=== PATIENT | male | born 1965 | race African-American/Black ===

== ENCOUNTER 2020-01-07 02:13 | Outpatient (CLI) | payer MEDICARE, SELFPAY ==
[2020-01-07 18:20] LABS: SARS-CoV-2 RNA PCR Negative
== END 2020-01-07 02:14 | disposition home or self-care (01) ==
LOC: ANHCOVIDDT 02:14
PROVIDERS: PCP Family Medicine Sports Medicine; Visit Provider Internal Medicine Gastroenterology
DX: Z01.812 Encounter for preprocedural laboratory examination (principal); Z11.59 Encounter for screening for other viral diseases
CPT/HCPCS: 87635; C9803; U0003

== ENCOUNTER 2020-01-09 01:38 | Day surgery (SDC) | payer MEDICARE, SELFPAY ==
[2020-01-03 12:49] VITALS: BMI 27.1
[2020-01-09 12:18] VITALS: BP 174/91; PULSE 79; RESP 18; TEMP 36.2; O2SAT 100; BMI 26.9
[2020-01-09] MEDS: SODIUM CHLORIDE 0.9% IV 500 ML 10 ML IV CONT (12:35)
--- NOTE | 2020-01-09 12:52 | PM.HPGS ---
History of Present Illness History of Present Illness Consent: Risks, benefits, and alternatives have been discussed and questions answered. Patient agrees to proceed with procedure. Chief complaint: neoplasm screening Narrative: Agueda Houser Jr. is a 54 year old male here for screening colon cancer, last one about 6 years ago. Review of Systems Constitutional: Constitutional: Denies headache(s) and Denies weakness Eyes: Eyes: Denies blurry vision ENT: Reports Normal hearing present, Denies headache(s) and Denies neck pain Cardiovascular: Cardiovascular: Denies chest pain and Denies dyspnea Respiratory: Respiratory: Denies dyspnea Gastrointestinal: Gastrointestinal: Reports no additional gastrointestinal complaints Genitourinary: Genitourinary: Denies dysuria Musculoskeletal: Musculoskeletal: Denies neck pain Integumentary/Breasts: Skin/Breast: Denies dry skin Neurologic: Reports Normal hearing present, Denies headache(s) and Denies weakness Psychiatric: Psychiatric: Denies anxiety Endocrine: Endocrine: Denies change in body appearance Hematologic/Lymphatic: Hematologic/Lymphatic: Denies easy bleeding Allergic/Immunologic: Allergic/Immunologic: Denies urticaria PMFSH Past Medical History Medical History (Updated 01/09/20 @ 12:53 by Vivek Contreras MD) Colon cancer screening End stage renal disease on peritoneal dialysis HIV (human immunodeficiency virus infection) Hyperlipidemia Hypertension Meds Home Medications and Allergies Home Medications Medication Instructions Recorded Confirmed Type abacavir 300 mg PO ONCE 01/03/20 01/03/20 History atorvastatin 10 mg PO HS 01/03/20 01/03/20 History calcitriol 0.5 mcg PO 3XW 01/03/20 01/03/20 History dolutegravir [Tivicay] 50 mg PO DAILY 01/03/20 01/03/20 History furosemide 80 mg PO DAILY 01/03/20 01/03/20 History lisinopril 5 mg PO DAILY 01/03/20 01/03/20 History Allergies Allergy/AdvReac Type Severity Reaction Status Date / Time No Known Allergies Allergy Verified 01/09/20 12:16 Vital Signs Vital Signs - 24 hr 01/09/20 12:18 Temperature 97.1 F L Pulse Rate 79 Respiratory Rate 18 Blood Pressure 174/91 H Pulse Oximetry 100 Exam Const: General: comfortable and no acute distress HENMT: General nose exam: Normal nares present Eyes: General: appearance normal, both eyes and all related structures Neck: Neck: no JVD Resp: Auscultation: clear to auscultation bilaterally Cardio: Rate: regular rate Rhythm: regular rhythm GI: Inspection: non-distended GI Palp: Yes Soft to palpation Skin: General skin exam: normal color Neuro: General: gait normal Speech: normal speech Extrem: General: normal to inspection Psych: Mental Status: mental status grossly normal Assessment and Plan Assessment and plan (1) Colon cancer screening: Code(s): Z12.11 - Encounter for screening for malignant neoplasm of colon Status: Acute Assessment and Plan: will proceed with colonoscopy (2) HIV (human immunodeficiency virus infection): Code(s): B20 - Human immunodeficiency virus [HIV] disease Status: Acute
[2020-01-09 13:19] VITALS: BP 122/71; PULSE 79; RESP 14; O2SAT 99
[2020-01-09 13:29] VITALS: BP 120/74; PULSE 64; RESP 16; O2SAT 100
[2020-01-09 13:39] VITALS: BP 134/82; PULSE 64; RESP 18; O2SAT 100
== END 2020-01-09 14:00 | disposition home or self-care (01) ==
PROVIDERS: PCP Family Medicine Sports Medicine; Visit Provider Internal Medicine Gastroenterology
PROC: 0DJD8ZZ Inspection of Lower Intestinal Tract, Via Natural or Artificial Opening Endoscopic (ICD-10-PCS; CPT 45378; principal; 2020-01-09 12:15)
DX: Z12.11 Encounter for screening for malignant neoplasm of colon (principal); D12.2 Benign neoplasm of ascending colon; K64.8 Other hemorrhoids; I12.0 Hypertensive chronic kidney disease with stage 5 chronic kidney disease or end stage renal disease; N18.6 End stage renal disease; Z99.2 Dependence on renal dialysis; E78.5 Hyperlipidemia, unspecified; B20 Human immunodeficiency virus [HIV] disease
CPT/HCPCS: 45385; 88305; J2704; J7040

== ENCOUNTER → 2020-01-16 14:51 | Outpatient (CLI) | payer MEDICARE, SELFPAY ==
--- NOTE | ~2020-01-16 | XR_ITS ---
EXAMINATION: XR chest 2V DATE: 01/16/2020 15:05 INDICATION: Positive tuberculosis test. TECHNIQUE: Frontal and lateral views of the chest were obtained on 3 radiographs. COMPARISON: Chest 2 views 12/18/2013 FINDINGS: There is mild scarring at left lung apex. Calcified right lung nodules are consistent with old granulomatous disease. No pleural effusion or pneumothorax. The heart size is normal. There are c hanges of posterior fusion procedure in cervicothoracic spine. IMPRESSION: 1. Mild scarring at left lung apex, stable from 12/18/2013. Reviewed, dictated and finalized at location A.
== END ==
PROVIDERS: Visit Provider Internal Medicine Nephrology
DX: R76.11 Nonspecific reaction to tuberculin skin test without active tuberculosis (principal); R91.8 Other nonspecific abnormal finding of lung field
CPT/HCPCS: 71046

== ENCOUNTER 2021-08-15 22:09 | Emergency (ER) | payer MEDICARE, SELFPAY ==
[2021-08-15 22:19] VITALS: BP 162/98; PULSE 96; RESP 16; TEMP 36.4; O2SAT 99
--- NOTE | 2021-08-15 23:57 | ED.GENADULT ---
HPI - General Adult General Chief complaint: Urogenital-Male Stated complaint: hard to urinate Time Seen by Provider: 08/15/21 22:49 History of Present Illness HPI narrative: 55-year-old male presented to the emergency department for evaluation of acute urinary retention. Patient states over the last 2 days he has had increased difficulty urinating. Patient states that he has increased urgency. Patient states he is also having to strain in order to pass any urine. Patient does report a history of urinary tract infection but denies any prior history of urinary retention. Patient does describe a decreased caliber of his urinary stream but has not had any issues with retention until today. Patient's previous urinary tract infection was secondary to having a Couch catheter during a surgical procedure. Related Data Home Medications Medication Instructions Recorded Confirmed abacavir 300 mg PO ONCE 01/03/20 01/03/20 atorvastatin 10 mg PO HS 01/03/20 01/03/20 calcitriol 0.5 mcg PO 3XW 01/03/20 01/03/20 dolutegravir [Tivicay] 50 mg PO DAILY 01/03/20 01/03/20 furosemide 80 mg PO DAILY 01/03/20 01/03/20 lisinopril 5 mg PO DAILY 01/03/20 01/03/20 Allergies Allergy/AdvReac Type Severity Reaction Status Date / Time No Known Allergies Allergy Verified 01/09/20 12:16 Review of Systems Review of Systems: CONSTITUTIONAL: Denies fever, chills, or sweats. EYES: Denies visual changes, redness, or discharge. ENT: Denies rhinorrhea, congestion, sore throat, or otalgia. CARDIOVASCULAR: Denies chest pain, palpitations, or edema. RESPIRATORY: Denies cough or dyspnea. GASTROINTESTINAL: Denies abdominal pain, nausea, vomiting, or diarrhea. GENITOURINARY: Urinary frequency, lower abdominal pressure, urinary retention SKIN: Denies rash or itching. MUSCULOSKELETAL: Denies back pain, joint pain, or myalgia. NEUROLOGIC: Denies headache, numbness, or weakness. All systems reviewed & are unremarkable except as noted in HPI and below PMFSH Past Medical History Medical History (Updated 08/16/21 @ 01:33 by Constantine Velásquez MD) Colon cancer screening End stage renal disease on peritoneal dialysis HIV (human immunodeficiency virus infection) Hyperlipidemia Hypertension Exam Narrative: APPEARANCE: Well appearing, no pain, no distress, well-nourished. HEAD: normocephalic, atraumatic. EYES: PERRLA/EOMI, conjunctivae clear. NOSE: Normal no drainage RESPIRATORY: Airway patent, respirations nonlabored. Clear to auscultation bilaterally, no rales, rhonchi, wheezing. CARDIOVASCULAR: Regular rate and rhythm without murmurs rubs or gallops. ABDOMINAL: Mild suprapubic tenderness to palpation. MUSCULOSKELETAL: Moves all extremities. Strength/ROM intact, No edema, No calf tenderness. NEURO: Alert. Cranial nerves II through XII intact. Good gait. Good coordination SKIN: Warm, dry. Normal Color Course Course Emergency Course: Post void residual bladder scan patient still have greater than 400 mL of retained urine. Patient did agree to have a Couch catheter placed. Patient had greater than 500mL urine output and did feel significantly improved. Patient did have some anxiety regarding the Couch catheter but was reassured. Patient was treated with both Pyridium and Flomax in the emergency department. Patient is currently on antibiotics that were started as an outpatient. No significant evidence of urinary tract infection, patient was told to still continue the antibiotics. Patient was provided a prescription for Pyridium due to his bladder spasm and was also provided Flomax. Patient was also provided information for urology follow-up. All questions and concerns were addressed. Patient was improved at time of discharge from the emergency department. Vital Signs Vital signs: Vital Signs Temperature 97.6 F 08/15/21 22:19 Pulse Rate 96 08/15/21 22:19 Respiratory Rate 16 08/15/21 22:19 Blood Pressure 162/98 H 08/15/21 22:19 Pulse Oximetry 99 03/
[2021-08-16 00:26] LABS: Add Urine Microscopic? YES; Appearance Urine Clear (Clear); Bilirubin Urine Negative (Negative); Blood Urine Negative (Negative); Color Urine Yellow (Yellow); Glucose Urine UA 1+ mg/dL (Negative); Ketones Urine Negative (Negative); Leukocyte Esterase Ur Negative LEU/UL (Negative); Nitrate Urine Negative (Negative); Protein Urine 2+ mg/dL (Negative); RBC Urine 0-2 /hpf (0-2); Squamous Epithelial Cell Urine Rare /hpf (Few); Urobilinogen Urine Negative mg/dL (<2.0); WBC Urine 0-3 /hpf
[2021-08-16] MEDS: LIDOCAINE HCL 2% GEL UROJET 10 ML PKG (01:00)
[2021-08-16] MEDS: TAMSULOSIN HCL 0.4 MG CAPSULE PO (01:58)
[2021-08-16] MEDS: PHENAZOPYRIDINE HCL 100 MG TABLET 200 MG PO (01:58)
[2021-08-16 02:31] VITALS: RESP 20
== END 2021-08-16 02:34 | disposition home or self-care (01) ==
PROVIDERS: Emergency Provider Emergency Medicine; PCP Family Medicine Sports Medicine
DX: R33.9 Retention of urine, unspecified (principal); I12.0 Hypertensive chronic kidney disease with stage 5 chronic kidney disease or end stage renal disease; N18.6 End stage renal disease; Z99.2 Dependence on renal dialysis; Z21 Asymptomatic human immunodeficiency virus [HIV] infection status; E78.5 Hyperlipidemia, unspecified
CPT/HCPCS: 51702; 81001; 99283; A9270

== ENCOUNTER 2022-01-18 02:54 | Inpatient (IN) | payer MEDICARE, SELFPAY ==
[2022-01-18] VITALS (14 sets, daily range): BP systolic 136–180; BP diastolic 90–101; PULSE 59–99; RESP 12–18; TEMP 36.2–36.7; O2SAT 98–100; BMI 27.0
--- NOTE | 2022-01-18 | ECHO_ITS ---
Patient Info Name: Agueda Houser Age: 56 years : 1965 Gender: Male Ht: 73 in Wt: 205 lbs BSA: 2.20 m2 HR: 64 bpm BP: 144 / 90 mmHg Heart Rhythm: Sinus Rhythm Technical Quality: Good Exam Date: 01/18/2022 2:36 PM Exam Location: [facility] Pulmonary Exam Room: [facility] Patient Status: Inpatient Admit Date: 01/18/2022 Staff Ordering Physician: Aldair Doran MD Food Preparation Worker: Marlee Craig RDCS Attending Provider: Corinna Barraza DO Referring Physician: Espinoza DUMONT; Exam Type: CA echo doppler color flow Study Info Indications - chest pain elevated troponins Complete two-dimensional, color flow and Doppler transthoracic echocardiogram is performed. Summary 1. Complete two-dimensional, color flow and Doppler transthoracic echocardiogram is performed. 2. Left ventricular chamber dimension is normal. 3. Left ventricular systolic function is normal, estimated at 65-70%. 4. No ischemic wall motion abnormalities were identified. Left Ventricle Left ventricular chamber dimension is normal. Left ventricular systolic function is normal, estimated at 65-70%. There is mild concentric increased left ventricular wall thickness. The left ventricular diastolic function is grade I diastolic dysfunction. No ischemic wall motion abnormalities were identified. Right Ventricle Right ventricular chamber dimension is normal. Left Atria Left atrial chamber dimension is normal. Right Atria Right atrial chamber dimension is normal. Aortic Valve The aortic valve is trileaflet. There is mild aortic valve sclerosis. Pulmonic Valve The pulmonic valve is normal. Mitral Valve The mitral valve has normal leaflets. Tricuspid Valve The tricuspid valve leaflets are normal. There is trace tricuspid valve regurgitation. Pericardium/Pleural The pericardium appears normal. Aorta The aortic root size at the sinus of Valsalva is normal. Left Ventricular Outflow Tract Name Value Normal LVOT 2D LVOT Diameter 2.1 cm LVOT Doppler LVOT Peak Gradient 5 mmHg LVOT Mean Gradient 2 mmHg LVOT VTI 19 cm LVOT VTI/AV VTI Ratio 0.9 LVOT Stroke Volume 70 ml LVOT CO 16.2 l/min LVOT CI 7.4 l/min/m2 Pulmonic Valve Name Value Normal PV Doppler PV Peak Gradient 3 mmHg PV Regurgitation Doppler [place] Peak End Diastolic Velocity 100 cm/s Mitral Valve Name Value Normal
--- NOTE | ~2022-01-18 | XR_ITS ---
EXAMINATION: XR chest 1V portable DATE: 01/18/2022 04:54 INDICATION: Chest pain. TECHNIQUE: A single frontal view of the chest was obtained. COMPARISON: Chest 2 views 01/16/2020 FINDINGS: A calcified right lung nodule is consistent with old granulomatous disease. There is mild a telectasis at right lung base. No pleural effusion or pneumothorax. The heart size is normal. There a re changes of posterior fusion procedure in cervical spine. IMPRESSION: 1. Mild atelectasis at right lung base. Reviewed, dictated and finalized at location A.
--- NOTE | 2022-01-18 03:13 | ECG_ITS ---
Measurements Intervals [place] Rate: 86 P: 61 [place]: 174 QRS: 87 QRSD: 153 T: 56 QT: 403 QTc: 485 Interpretive Statements SINUS RHYTHM RIGHT BUNDLE BRANCH BLOCK ABNORMAL ECG NO PREVIOUS ECG AVAILABLE FOR COMPARISON Electronically Signed On 01-18-2022 16:17:45 CDT by Houston Benitez M.D.
[2022-01-18] MEDS: NITROGLYCERIN SL 0.4 MG TABLET SUBLINGUAL (03:32)
[2022-01-18] MEDS: PANTOPRAZOLE SODIUM IV 40 MG VIAL IV PUSH (03:33)
--- NOTE | 2022-01-18 03:35 | PC.NURSE ---
0332: 0.4 mg SL nitro given. Pt states he isn't having any pain at this time
[2022-01-18 03:45] LABS: Basophils Absolute Auto 0.1 K/mm3 (0.0-0.1); Basophils Percent Auto 1.8 % (0.2-1.2); Eosinophils Absolute Auto 0.6 K/mm3 (0-0.3); Eosinophils Percent Auto 7.9 % (0-4.4); Hematocrit 35.1 % (42.0-52.0); Hemoglobin 11.2 g/dL (14.0-18.0); Immature Granulocyte Absolute 0.03 K/mm3 (0.00-0.031); Immature Granulocyte Percent A 0.4 % (0-0.5); Lymphocytes Absolute Auto 1.39 K/mm3 (0.9-3.2); Lymphocytes Percent Auto 17.4 % (18.3-44.2); Mean Corpuscular HGB Conc 31.9 g/dl (32-36); Mean Corpuscular Hemoglobin 30.8 pg (26-34); Mean Corpuscular Volume 96.4 fl (80-100); Mean Platelet Volume 9.7 fl (7.4-10.4); Monocytes Absolute Auto 0.8 K/mm3 (0.1-0.6); Monocytes Percent Auto 10.2 % (2.6-8.5); Neutrophils Percent Auto 62.3 % (45.5-73.1); Platelet Count Result 232 k/mm3 (150-375); Red Blood Count 3.64 M/mm3 (4.6-6.20); Red Cell Distribution Width 12.7 % (11.5-14.5)
--- NOTE | 2022-01-18 03:55 | ED.CHESTPAIN ---
HPI - Chest Pain General Chief Complaint: Chest Pain Stated Complaint: heartburn x several days, CP Time Seen by Provider: 01/18/22 03:07 Source: patient and RN notes reviewed Mode of arrival: ambulatory Limitations: no limitations History of Present Illness HPI narrative: This is a 56 year old male with history of HIV, hypertension, chronic kidney disease on peritoneal dialysis who presents for evaluation of heartburn . He states starting 3 days ago he has been having burning midsternal chest pain that seems to occur more at night. His pain is intermittent. It will be severe for a few minutes and resolve. He has tried pepcid and pepto without improvement. His family at bedside states tonight he started sweating with episode of pain so he came to ER. He denies pain worsening with exertion. He denies associated nausea, vomiting or fever. He denies any heart disease. He is on kidney transplant list and he reports having normal heart catheterization in May 2021. Related Data Home Medications Medication Instructions Recorded Confirmed dolutegravir 50 mg-rilpivirine 25 1 tablet PO DAILY 01/18/22 01/18/22 mg tablet (Juluca) doxercalciferol 1 mcg capsule 1 mcg PO DAILY 01/18/22 01/18/22 rosuvastatin 5 mg tablet 5 mg PO DAILY 01/18/22 01/18/22 Allergies Allergy/AdvReac Type Severity Reaction Status Date / Time No Known Allergies Allergy Verified 01/18/22 03:19 Review of Systems Review of Systems: All systems reviewed & are unremarkable except as noted in HPI and below Constitutional: Constitutional: Denies chills, Denies fatigue and Denies fever(s) Cardiovascular: Cardiovascular: Reports chest pain and Denies radiating jaw, neck or arm pain Respiratory: Respiratory: Denies chest congestion, Denies cough and Denies dyspnea Gastrointestinal: Gastrointestinal: Denies abdominal pain PMFSH Past Medical History Medical History Colon cancer screening End stage renal disease on peritoneal dialysis HIV (human immunodeficiency virus infection) Hyperlipidemia Hypertension Family History Family History (Updated 01/18/22 @ 06:48 by Carissa Humphrey RN) Mother Sudden cardiac Mother Smoker Father Smoker Diabetes mellitus Hypertension ESRD on dialysis Cerebrovascular accident Social History Social History (Updated 01/18/22 @ 04:00 by Caitlin Ackerman MD) Smoking status: Former smoker Alcohol intake: never Substance use: never Spiritual care concerns: No Exam Const: General: alert; No diaphoretic Nutritional Appearance: well nourished Orientation/consciousness: patient oriented x3 Other: patient appears uncomfortable HENMT: Head: normal to inspection Eyes: EOM: EOMs intact bilaterally Chest: Chest palpation & inspection: normal inspection of the chest Resp: Effort & Inspection: normal respiratory effort Auscultation: clear to auscultation bilaterally Cardio: Rate: regular rate Rhythm: regular rhythm Heart sounds: no murmurs GI: GI Palp: Yes Soft to palpation, No Tenderness to palpation present (GI) and No Guarding due to palpation present (GI) Auscultation: normal bowel sounds Other: dialysis catheter in place, area surrounding appears clean Skin: General skin exam: normal color Rashes: no rashes Neuro: General: patient oriented x3, moves all extremities and CN's II-XI intact bilaterally Psych: Mental Status: mental status grossly normal Affect: normal affect Attitude: cooperative Course Reevaluation(s) Reevaluation #1: Patient's pain initially resolved . I went to talk to patient about finding of MS. He started having chest pain again. Repeat EKG does not show STEMI. He will be given aspirin, nitro, metoprolol, heparin. Date: 01/18/22 Time: 04:44 Reevaluation #2: I Discussed case with DR. wilkinson. Patient denies chest pain. She accepts patient to hospitalist service. Date:
[2022-01-18 04:00] LABS: Prothrombin Time 12.7 Seconds (11.1-14.7)
[2022-01-18 04:01] LABS: Partial Thromboplastin Time 33.6 SECONDS (22.3-36.8)
[2022-01-18 04:02] LABS: Alanine Aminotransferase 18 U/L (6-50); Albumin Level 4.6 g/dL (3.5-5.1); Alkaline Phosphatase 103 U/L (38-126); Anion Gap 12 mmol/L (8-16); Aspartate Amino Transferase 29 U/L (17-59); Bilirubin,Total 0.4 mg/dL (0.2-1.3); Blood Urea Nitrogen 40 mg/dL (9-20); Calcium 8.7 mg/dL (8.4-10.2); Carbon Dioxide 25 mmol/L (22-30); Chloride 105 mmol/L (98-107); Estimated CRCL calculation 8 ml/min; Estimated Glomerular Filt Rate 6; Glucose 126 mg/dL (65-110); Lipase 129 U/L (23-300); Potassium 4.8 mmol/L (3.4-5.0); Sodium 142 mmol/L (137-145)
--- NOTE | 2022-01-18 04:16 | ECG_ITS ---
Measurements Intervals [place] Rate: 81 P: 34 ME: 144 QRS: 94 QRSD: 142 T: 75 QT: 394 QTc: 460 Interpretive Statements SINUS RHYTHM RIGHT BUNDLE BRANCH BLOCK ABNORMAL ECG COMPARED TO ECG 01/18/2022 03:17:26 NO SIGNIFICANT CHANGES Electronically Signed On 01-18-2022 16:17:58 CDT by Houston Benitez M.D.
[2022-01-18] MEDS: ASPIRIN 81 MG CHEWABLE TABLET 324 MG PO (04:29)
[2022-01-18] MEDS: METOPROLOL TARTRATE 50 MG TAB 25 MG PO (04:29)
--- NOTE | 2022-01-18 04:35 | PC.NURSE ---
0433: 0.4 SL nitro given.
--- NOTE | 2022-01-18 04:39 | PC.NURSE ---
0438: 0.4 SL nitro given , pain 0/10 at this time
[2022-01-18] MEDS: HEPARIN SODIUM 5,000 UNITS/ML VIAL 4000 UNITS IV PUSH (04:49)
[2022-01-18] MEDS: HEPARIN SOD/D5W 100 UNITS/ML 25,000 UNITS/250 ML BAG 10 UNITS IV CONT (05:08)
[2022-01-18] MEDS: METOPROLOL TARTRATE INJ 5 MG/5 ML VIAL IV PUSH (05:09)
[2022-01-18] MEDS: NITROGLYCERIN OINTMENT 1 INCH DOSE TRANSDERM (05:49)
--- NOTE | 2022-01-18 06:36 | ADMGEN ---
This patient, Agueda Houser Jr., was admitted to IMU Room 201-01 at 0637. Patient/family oriented to hospital policies and general routines including ID bracelet, bed and alarms, visiting hours, pain management, procedures, bathroom and other care routines, personal items, smoking policy, room service/diet, and visiting hours. Information on how to activate the Rapid Response Team has been discussed. Patient/Family are encouraged to report perceived risks to care and to ask questions if they do not understand what they are told or what they should do.
[2022-01-18 09:03] LABS: Cholesterol 203 mg/dL (0-200); HDL Direct 46 mg/dL; Triglycerides 63 mg/dL (<150)
[2022-01-18 09:13] LABS: LDL Cholesterol Direct 104 mg/dL
[2022-01-18] MEDS: ASPIRIN 81 MG CHEWABLE TABLET PO (09:16)
--- NOTE | 2022-01-18 09:30 | PM.IMHP ---
H&P: HPI History of Present Illness Date/Time: 01/18/22 09:30 Chief Complaint: Heartburn Narrative: Brendon Houser Jr is a 56 yo male with medical history of ESRD on peritoneal dialysis, hypertension, HIV positive, and BPH. He presented to the ED today for evaluation of substernal chest pain for the past 3 days. He reports the pain is burning, intermittent, and occurs at rest, lying down and appears worse at night. He attributed his pain to heartburn and took multiple doses of Pepcid AC on Tuesday, however, the pain returned. On Tuesday, he reported his pain reoccurred at approximately 8 pm last night. It progressively worsened in intensity to severe pain by 10pm and was associated with dizziness and diaphoresis. He denies fever, chills, SOB, back pain, arm pain or numbness, jaw pain, abdominal pain, nausea, vomiting, or palpitations. The increasing chest pain prompted him to be evaluated at the ED. In the ED, he was hypertensive 180/96, HR 97, RR 18, Temp 97.8F, and spO2 100% on room air. Lab work was significant for elevated troponin 2.7, BUN 40, creatinine 10.6, but otherwise normal CMP and CBC. EKG showed sinus rhythm with RBBB. Chest x-ray was showed mild RLL atelectasis. He was treated with aspirin 324 mg, nitro SL x3 doses, 1 inch nitro paste, protonix 40 mg IV x1, Lopressor 5 mg IV x1 and 25 mg PO x1. He was also bolused with 4,000 units of heparin and started on a heparin drip. Cardiology was consulted in ED and agreed to see the patient. He was admitted to IMU for further evaluation and management on NSTEMI. Review of Systems Review of Systems: All systems reviewed & are unremarkable except as noted in HPI and below Respiratory: Respiratory: Reports cough Comments: Bronchoscopy planned with Dr. Debbie Monroy at [facility]. [facility] Past Medical History Medical History (Updated 01/18/22 @ 09:37 by Fide Juares APRN) BPH (benign prostatic hyperplasia) End stage renal disease on peritoneal dialysis HIV (human immunodeficiency virus infection) Hyperlipidemia Hypertension Surgical History Surgical History (Updated 01/18/22 @ 09:37 by Fide Juares APRN) History of cataract surgery Status post cervical spinal fusion Family History Family History Mother Sudden cardiac Mother Smoker Father Smoker Diabetes mellitus Hypertension ESRD on dialysis Cerebrovascular accident Social History Social History (Updated 01/18/22 @ 09:38 by Fide Juares APRN) Years smoked: 3 Smoking status: Former smoker Tobacco type: cigarettes Alcohol intake: never Substance use: never Living arrangements: with family Occupation/Education: unemployed Gender identity (if verbalized by the patient): Male Spiritual care concerns: No Meds Home Medications and Allergies Home Medications Medication Instructions Recorded Confirmed Type tamsulosin 0.4 mg capsule (Flomax) 0.4 mg PO DAILY #20 caps 08/16/21 01/18/22 Rx dolutegravir 50 mg-rilpivirine 25 1 tablet PO DAILY 01/18/22 01/18/22 History mg tablet (Juluca) doxercalciferol 1 mcg capsule 1 mcg PO DAILY 01/18/22 01/18/22 History rosuvastatin 5 mg tablet 5 mg PO DAILY 01/18/22 01/18/22 History Allergies Allergy/AdvReac Type Severity Reaction Status Date / Time No Known Allergies Allergy Verified 01/18/22 03:19 Vital Signs Vital Signs - 24 hr 01/18/22 03:00 01/18/22 03:16 01/18/22 04:29 Temperature 97.8 F Pulse Rate 97 89 93 Respiratory Rate 18 Blood Pressure 180/96 H Pulse Oximetry 100 Oxygen Delivery Room Air 01/18/22 04:35 01/18/22 05:09 01/18/22 05:12 Temperature Pulse Rate 99 89 83 Respiratory Rate 12 18 Blood Pressure 159/100 H 148/101 H Pulse Oximetry 100 100 Oxygen Delivery 01/18/22 05:50 01/18/22 06:43 01/18/22 08:03 Temperature 98.0 F Pulse Rate 71 67 62 Respiratory Rate 16 18 Blood Pressure 154/100 H 157/93 H
[2022-01-18] MEDS: TAMSULOSIN HCL 0.4 MG CAPSULE PO (10:18)
[2022-01-18] MEDS: ROSUVASTATIN 10 MG TABLET PO (10:18)
[2022-01-18 11:49] LABS: Partial Thromboplastin Time 55.7 SECONDS (22.3-36.8)
[2022-01-18] MEDS: HEPARIN SODIUM 5,000 UNITS/ML VIAL 3500 UNITS IV PUSH (12:09)
--- NOTE | 2022-01-18 13:31 | PM.CNCAR ---
Assessment and Plan Assessment and plan (1) Non-ST elevation UT (NSTEMI): Code(s): I21.4 - Non-ST elevation (NSTEMI) myocardial infarction Status: Acute Plan This is a 56-year-old man with intermittent chest pain episodes since Tuesday of last . His history is for the most part atypical of ischemia. His electrocardiogram does not show any acute ischemic or injury changes. His troponin levels are all elevated however it is not possible to reliably diagnosis AMI in this setting with acute renal failure. The patient also reports that he has been undergoing coronary angiograms annually to stay on the transplant list and [place] and has never had angiographic evidence of coronary disease to the best of his knowledge. Most recent of these exams would have been done about 8 months ago. I am going to recommend obtaining an echocardiogram on him to see if there are any ischemic wall motion abnormalities. If there are then a follow-up angiogram should be done. If his echo shows normal LV systolic function without wall motion abnormalities then he can probably be dismissed for follow-up with his transplant center. Aldair Doran MD [facility] History of Present Illness History of Present Illness Consult date/time: 01/18/22 13:31 Reason For Visit: NSTEMI Narrative: This is a 56-year-old man I am seeing at the request of the hospitalist because of chest pain and troponin elevation after being admitted to the hospital from the emergency department. The patient states that he was in his usual state of health when starting about Tuesday of last he started having episodes of chest discomfort that he attributed as dyspepsia/heartburn. He had a burning retrosternal sensation that would come and go. A he took some antacids and it did improve the symptoms on Tuesday he was feeling better with very little of this. He felt worse again yesterday on Tuesday so he came to the emergency room for evaluation. In the emergency department he had an electrocardiogram done that shows sinus rhythm with right bundle branch block morphology. There were no acute ST or T-wave abnormalities. Troponin levels are all elevated on all 3 sets. The patient does have end-stage renal disease he says due to hypertensive nephrosclerosis. He has been a dialysis patient since 2013. He he states that his medical care is all at [facility] where he is on the transplant list for a renal transplant. Interestingly he states to stay on the transplant list he has to have a coronary angiogram done there every year which was done this year in May. He states all of his coronary angiograms have been normal. When he is not having the symptoms he does not have any exertional symptoms of chest pain exertional shortness of breath orthopnea PND or edema. He is a retired on disability he used to work in the [employer] and lives with his they have a 9-year-old daughter. Review of Systems Constitutional: Constitutional: Reports no additional constitutional complaints Eyes: Eyes: Reports no additional eye complaints ENT: Reports system reviewed and no additional complaints, except as documented Cardiovascular: Cardiovascular: Reports as per HPI Respiratory: Respiratory: Reports no additional respiratory complaints Gastrointestinal: Gastrointestinal: Reports as per HPI Musculoskeletal: Musculoskeletal: Reports no additional musculoskeletal complaints Integumentary/Breasts: Skin/Breast: Reports system reviewed and no additional complaints, except as docu Neurologic: Reports system reviewed and no additional complaints, except as documented Endocrine: Endocrine: Reports no additional endocrine complaints Hematologic/Lymphatic: Hematologic/Lymphatic: Reports no additional hematologic/lymphatic complaints Allergic/Immunologic: Allergic/Immunologic: Reports no additional allergic/immunologic complaints PMFSH Past Medical History Medical Hi
[2022-01-18 13:44] LABS: Hemoglobin A1C 4.3 % (<5.7)
--- NOTE | 2022-01-18 15:42 | PM.CNNEP ---
Assessment and Plan Assessment and plan (1) End stage renal disease: Code(s): N18.6 - End stage renal disease Status: Chronic Assessment and Plan: Resume CCPD treatments at night if remains hospitalized follow electrolytes, volume status, and clearance (2) Non-ST elevation NE (NSTEMI): Code(s): I21.4 - Non-ST elevation (NSTEMI) myocardial infarction Status: Acute Assessment and Plan: chest pain for 3 days increasing in intensity and occurring at rest associated with diaphoresis and dizziness Cardiology recommendations noted trend cardiac enzymes and follow telemetry continue medical management (3) Hypertension: Qualifiers: Hypertension type: primary hypertension Qualified Code(s): I10 - Essential (primary) hypertension Code(s): I10 - Essential (primary) hypertension Status: Acute Assessment and Plan: continue metoprolol tartrate PO BID follow hemodynamics Will continue to follow. History of Present Illness Reason for Consult Consult date: 01/24/22 Reason for consult: end stage renal disease Chief Complaint Chief complaint: heartburn History of Present Illness Narrative: The patient is a 56-year-old male with a past medical history as outlined below who presented to [facility] Emergency room with complaints of chest pain. The chest pain has been present for last 3 days which he describes as a burning sensation that has been intermittent and occurs with rest, lying down and seems to be somewhat worse at night. Initially thought the pain was related more to heartburn but after multiple doses of Pepcid, the chest pain did not seem to resolve. Eventually, his chest pain occurred once again and seem to be worse in intensity than when it started 3 days ago with associated symptoms of dizziness and diaphoresis. He had no reported fever, chills, shortness of breath, back pain arm pain or numbness /tingling, jaw pain, no nausea, vomiting, or palpitations. Given the persistence of the chest pain for the last few days and worsening in the last 24 hours, he presented to the emergency room for further evaluation and therapy. Workup and evaluation emergency room demonstrated the patient to be slightly hypertensive in the 180 systolic but otherwise with good oxygen saturations. Routine blood test demonstrated labs consistent with his known history of end-stage renal disease and his CBC was otherwise unremarkable. His EKG showed a right bundle-branch Romulo but no overt ischemic changes and his chest x-ray just showed mild right lower lobe atelectasis. Given his symptomatology, he was given aspirin sublingual nitro and Protonix as well as IV Lopressor. He was also started on IV heparin given the concern for possible non ST elevation NE. Cardiology was consulted in the emergency room and he was subsequently admitted to the hospital for further evaluation and therapy Since his admission, he has been seen by Cardiology who feel that his symptoms do not correlate with acute coronary syndrome. They recommend conservative therapy and monitoring troponins and telemetry and if no other further symptoms occur possible discharge later this afternoon. Renal consultation was requested due to his end-stage renal disease. The patient normally does peritoneal dialysis every evening through [facility] under the care of Dr. Rinku Padron. From a dialysis perspective, he appears to be doing quite well and his monthly labs show relative stability in his CKD parameters. He has not had any issues or problems with his dialysis treatments at home in general. He has no critical electrolyte abnormalities, evidence of volume overload, or uremia based on his labs noted on admission here to [facility]. Currently, at the time my evaluation, he appears to be in no acute distress. Review of Systems Review of Systems: As per H
--- NOTE | 2022-01-18 16:18 | PM.SD2 ---
Same Day Admit/Disch: HPI History of Present Illness Chief complaint: heartburn Narrative: Brendon Houser Jr is a 56 yo male with medical history of ESRD on peritoneal dialysis, hypertension, HIV positive, and BPH. He presented to the ED today for evaluation of substernal chest pain for the past 3 days. He reports the pain is burning, intermittent, and occurs at rest, lying down and appears worse at night. He attributed his pain to heartburn and took multiple doses of Pepcid AC on Tuesday, however, the pain returned. On Tuesday, he reported his pain reoccurred at approximately 8 pm last night. It progressively worsened in intensity to severe pain by 10pm and was associated with dizziness and diaphoresis. He denies fever, chills, SOB, back pain, arm pain or numbness, jaw pain, abdominal pain, nausea, vomiting, or palpitations. The increasing chest pain prompted him to be evaluated at the ED. In the ED, he was hypertensive 180/96, HR 97, RR 18, Temp 97.8F, and spO2 100% on room air. Lab work was significant for elevated troponin 2.7, BUN 40, creatinine 10.6, but otherwise normal CMP and CBC. EKG showed sinus rhythm with RBBB. Chest x-ray was showed mild RLL atelectasis. He was treated with aspirin 324 mg, nitro SL x3 doses, 1 inch nitro paste, protonix 40 mg IV x1, Lopressor 5 mg IV x1 and 25 mg PO x1. He was also bolused with 4,000 units of heparin and started on a heparin drip. Cardiology was consulted in ED and agreed to see the patient. He was admitted to IMU for further evaluation and management on NSTEMI. [facility] Past Medical History Medical History BPH (benign prostatic hyperplasia) End stage renal disease on peritoneal dialysis HIV (human immunodeficiency virus infection) Hyperlipidemia Hypertension Surgical History Surgical History History of cataract surgery Status post cervical spinal fusion Family History Family History Mother Sudden cardiac Mother Smoker Father Smoker Diabetes mellitus Hypertension ESRD on dialysis Cerebrovascular accident Social History Social History Years smoked: 3 Smoking status: Former smoker Tobacco type: cigarettes Alcohol intake: never Substance use: never Living arrangements: with family Occupation/Education: unemployed Gender identity (if verbalized by the patient): Male Spiritual care concerns: No Same Day Admit/Disch: Med Pre-admit Medications Home Medications Medication Instructions Recorded Confirmed Type tamsulosin 0.4 mg capsule (Flomax) 0.4 mg PO DAILY #20 caps 08/16/21 01/18/22 Rx dolutegravir 50 mg-rilpivirine 25 1 tablet PO DAILY 01/18/22 01/18/22 History mg tablet (Juluca) doxercalciferol 1 mcg capsule 1 mcg PO DAILY 01/18/22 01/18/22 History rosuvastatin 5 mg tablet 5 mg PO DAILY 01/18/22 01/18/22 History Exam Narrative: General:?No acute distress. Well-developed adult male sitting up in bed. HEENT:?Normocephalic. PERRL, EOMI. Conjunctivae anicteric. Hearing grossly normal. mucous membranes moist. Neck:??Supple. No lymphadenopathy. No JVD. Respiratory:?Lungs are clear to auscultation bilaterally. RR regular and unlabored. Cardiovascular:?normal S1-S2 regular rate and rhythm. No murmurs, gallops or rubs. SR with RBBB on telemetry. Gastrointestinal:??Abdomen is soft, round, nontender with positive bowel sounds. Peritoneal catheter LLQ clean, dry and intact. Skin:??Warm and dry.? Normal color for ethnicity. Fair turgor. Extremities:??No cyanosis, clubbing, or edema. Moves all 4 extremities equally with full strength. Radial and pedal pulses intact +2 bilaterally. Neurological:??Alert. Oriented x4. No focal sensory or motor deficits. Cranial nerves 2-12 grossly intact. Psychiatric:??Pleasant and cooperative. Normal mood an
== END 2022-01-18 17:15 | disposition home or self-care (01) | DRG 391 ==
LOC: ANHED 05:52 → ANHIMU 06:58
PROVIDERS: Internal Medicine Cardiovascular Disease; Admitting Provider Internal Medicine; Emergency Provider General Practice; PCP Family Medicine Sports Medicine; Visit Provider Nurse Practitioner Family
DX: K21.9 Gastro-esophageal reflux disease without esophagitis (principal); N18.6 End stage renal disease; I12.0 Hypertensive chronic kidney disease with stage 5 chronic kidney disease or end stage renal disease; B20 Human immunodeficiency virus [HIV] disease; E78.5 Hyperlipidemia, unspecified; N40.0 Benign prostatic hyperplasia without lower urinary tract symptoms; Z99.2 Dependence on renal dialysis; Z87.891 Personal history of nicotine dependence
CPT/HCPCS: 36415; 71045; 80053; 80061; 83036; 83690; 84484; 85025; 85610; 85730; 87040; 93005; 93306; 96365; 96375; 99291; A9270; C9113; J1644

== ENCOUNTER → 2022-02-19 12:56 | Outpatient (CLI) | payer MEDICARE, SELFPAY ==
--- NOTE | ~2022-02-19 | CT_ITS ---
EXAMINATION: CT diagnostic chest wo con DATE: 02/19/2022 13:22 INDICATION: Abnormal findings on diagnostic images TECHNIQUE: Computed tomography (CT) of the chest was performed without intravenous contrast. The dose -length product was 410.35 mGy-cm. Automated exposure control and iterative reconstruction technique were employed. COMPARISON: No prior studies for comparison. FINDINGS: Heart size is normal. No significant pleural or pericardial effusion. There is gynecomastia . No thoracic lymphadenopathy. There is atherosclerosis of the aorta and coronary arteries. There are gallstones. There is a 2.4 cm cyst in the left hepatic lobe. There is a small exophytic cyst from th e posterior margin of the left kidney. There is a 3 mm right lower lobe nodule. There is a 3 mm right middle lobe nodule. There is a 6 mm subsolid nodule in the right lower lobe posteriorly. There are a few small right upper lobe nodules measuring 3 mm or less. No pneumothorax. There is a 4 mm left low er lobe nodule. IMPRESSION: 1. Small bilateral pulmonary nodules, likely benign. Follow-up chest in 12 months recommended. 2: Cholelithiasis. Reviewed, dictated and finalized at location A. IMPRESSION: 1. Small bilateral pulmonary nodules, likely benign. Follow-up chest in 12 lu hs recommended. 2: Cholelithiasis.
== END ==
PROVIDERS: PCP Family Medicine Sports Medicine
DX: R93.89 Abnormal findings on diagnostic imaging of other specified body structures (principal); K80.20 Calculus of gallbladder without cholecystitis without obstruction; R91.8 Other nonspecific abnormal finding of lung field
CPT/HCPCS: 71250

== ENCOUNTER → 2022-05-11 08:47 | Outpatient (CLI) | payer MEDICARE, SELFPAY ==
--- NOTE | ~2022-05-11 | CT_ITS ---
CT Scan of the Chest without Contrast: Clinical Indication: Lung nodule COMPARISON: 02/19/2022 Technique: Contiguous sections were acquired throughout the chest without intravenous contrast. Dose reduction technique was used on this scan by utilizing automated exposure control and iterative recon struction technique. The dose-length product (DLP) was 427.52 mGy-cm. Findings: There is no evidence of any significant mediastinal, hilar or axillary lymphadenopathy. Coronary mckenzie ry calcifications are present. There is no evidence of pleural or pericardial effusion. Stable 4 mm right middle lobe pulmonary nodule noted (series 4 image 95). Stable calcified right uppe r lobe granuloma. Stable 4-5 mm peripheral left lower lobe noncalcified nodule (series 4 image 78). T here are stable focal scarring at the right lung base. Images through the upper abdomen reveal stable left hepatic lobe cyst, small calcified gallstones, an d trace perisplenic ascites. There are several small bubbles of pneumoperitoneum in the left upper qu adrant. Impression: Stable subcentimeter pulmonary nodules and focal scarring, as detailed above, most likely benign. Cholelithiasis. Minimal left upper quadrant pneumoperitoneum with small amount of perisplenic ascites. This is probab ly related to peritoneal dialysis. Correlate clinically. Reviewed, dictated and finalized at location [] [employer] Impression: Stable subcentimeter pulmonary nodules and focal scarring, as detailed above, m ost likely benign. Cholelithiasis. Minimal left upper quadrant pneumoperitoneum with small amount of perisplenic a scites. This is probably related to peritoneal dialysis. Correlate clinically.
== END ==
PROVIDERS: PCP Family Medicine Sports Medicine
DX: R93.89 Abnormal findings on diagnostic imaging of other specified body structures (principal); K80.20 Calculus of gallbladder without cholecystitis without obstruction
CPT/HCPCS: 71250